=== PATIENT | female | born 1980 | race Caucasian/White ===

== ENCOUNTER 2017-08-17 22:15 | Emergency (ER) | payer BC ==
[2017-08-17] MEDS ORDERED: TYLENOL 325 MG PO STA (22:52)
--- NOTE | 2017-08-17 22:52 | ERPHSYRPT ---
- History of Present Illness Time Seen by Provider: 08/17/17 22:43 Source: patient Exam Limitations: no limitations Physician History: The patient is an obese 36-year-old female who complains of having a fever and a scratchy throat for 7 hours today. She denies nausea vomiting or diarrhea. She denies headache. Her ears are mildly painful. Timing/Duration: today, hour(s) (7) Fever Severity: mild Fever Therapy PAINTER DECORATOR: none Associated Symptoms: sore throat Allergies/Adverse Reactions: No Known Drug Allergies Allergy (Unverified 08/17/17 22:54) - Review of Systems Constitutional: Fever, No Chills Eyes: No Symptoms Ears, Nose, & Throat: Ear Pain, Throat Pain, No Hoarse Respiratory: No Cough, No Dyspnea Cardiac: No Chest Pain, No Edema, No Syncope Abdominal/Gastrointestinal: No Abdominal Pain, No Nausea, No Vomiting, No Diarrhea Genitourinary Symptoms: No Dysuria Musculoskeletal: No Back Pain, No Neck Pain Skin: No Rash Neurological: No Dizziness, No Focal Weakness, No Sensory Changes Psychological: No Symptoms Endocrine: No Symptoms Hematologic/Lymphatic: No Symptoms Immunological/Allergic: No Symptoms All Other Systems: Reviewed and Negative - Nursing Vital Signs Nursing Vital Signs: Initial Vital Signs Temperature 100.1 F 08/17/17 22:29 Pulse Rate 114 H 08/17/17 22:29 Respiratory Rate 18 08/17/17 22:29 Blood Pressure 135/77 08/17/17 22:29 O2 Sat by Pulse Oximetry 95 08/17/17 22:29 Pain Scale Pain Intensity 0 - Physical Exam General Appearance: no apparent distress, alert Eye Exam: PERRL/EOMI ENT Exam: normal ENT inspection, No pharyngeal erythema, No tonsillar exudate Neck Exam: supple, full range of motion, No meningismus Respiratory Exam: normal breath sounds, lungs clear, no respiratory distress Cardiovascular/Chest Exam: normal heart sounds, regular rate/rhythm, No murmur, No edema Gastrointestinal/Abdominal Exam: soft, non tender, no distention Pelvic Exam: not done Rectal Exam: not done Extremity Exam: non-tender, normal range of motion, normal inspection, normal capillary refill Neurologic Exam: alert, oriented x 3, cooperative, chief yeoman II-XII nml as tested, normal mood/affect, sensation nml, No motor deficits Skin Exam: normal color, warm, dry, No rash SpO2 Interpretation: normal Ordered Tests: Active Orders 24 hr Category Date Time Status BMP Stat Lab 08/17/17 23:11 Completed CBC W DIFF Stat Lab 08/17/17 23:11 Completed CULTURE, THROAT Stat Lab 08/17/17 23:08 Received STREP SCREEN-BETA A Stat Lab 08/17/17 23:08 Completed UA W/ MICROSCOPIC Stat Lab 08/17/17 23:00 Completed Medication Summary Discontinued Medications Generic Name Dose Route Start Last Admin Trade Name Zofia PRN Reason Stop Dose Admin Acetaminophen 975 mg 08/17/17 22:52 08/17/17 22:57 Tylenol 325 Mg PO 08/17/17 22:53 975 mg STAT STA Administration Acetaminophen Confirm 08/17/17 22:56 Tylenol 325 Mg Administered 08/17/17 22:57 Dose 975 mg .ROUTE .[facility] Lab/Rad Data: Laboratory Result Diagrams 08/17/17 23:11 08/17/17 23:11 Laboratory Results 08/17/17 08/17/17 08/17/17 Range/Units 23:11 23:11 23:08 WBC 12.2 H (4.0-10.5) K/mm3 RBC 4.36 (4.1-5.4) M/mm3 Hgb 12.5 (12.0-16.0) gm/dl Hct 38.3 (35-47) % MCV 87.8 (78-100) fl MCH 28.7 (26-32) pg MCHC 32.6 (32-36) g/dl RDW 14.1 H (11.5-14.0) % Plt Count 222 (150-450) K/mm3 MPV 10.8 H (6-9.5) fl Gran % 82.1 H (36.0-66.0) % Lymphocytes % 10.4 L (24.0-44.0) % Monocytes % 7.1 (0.0-12.0) % Eosinophils % 0.2 (0.00-5.0) % Basophils % 0.2 (0.0-0.4) % Basophils # 0.02 (0-0.4) Sodium 140 (136-145) mEq/L Potassium 4.5 (3.5-5.1) mEq/L Chloride 102 (98-107) mEq/L Carbon Dioxide 29.2 (21-32) mEq/L Anion Gap 12.9 (5-15) MEQ/L BUN 15 (9-20) mg/dL Creatinine 0.76 (0.55-1.30) mg/dl Estimated GFR > 60 ML/MIN Glucose 111 H (70-110) MG/DL Calcium 9.6 (8.5-10.1) mg/dL Ur Collection Type Urine Color (YELLOW) Urine Appearance (CLEAR) Urine pH (5-6) Ur Specific [place] (1.005-1.025) Urine Protein (Negative) Urine Ketones (NEGATIVE) Urine Blood (0-5) Daniel/ul Urine Nitrite (NEGATIVE) Urine Bilirubin (NEGATIVE) Urine Urobilinogen (0-1) mg/dL Ur Leukocyte Esterase (NEGATIVE) Urine Microscopic RBC (0-2) /HPF Ur Epithelial Cells (FEW) /HPF Urine Culture Reflexed (NO) Urine Glucose (NEGATIVE) mg/dL Influenza Type A Ag NEGATIVE (NEGATIVE) Influenza Type B Ag NEGATIVE (NEGATIVE) RSV (PCR) NEGATIVE (Negative) Streptococcus Screen (Negative) Specimen Received 08/17/17 08/17/17 Range/Units 23:08 23:00 WBC (4.0-10.5) K/mm3 RBC (4.1-5.4) M/mm3 Hgb (12.0-16.0) gm/dl Hct (35-47) % MCV (78-100) fl MCH (26-32) pg MCHC (32-36) g/dl RDW (11.5-14.0) % Plt Count (150-450) K/mm3 MPV (6-9.5) fl Gran % (36.0-66.0) % Lymphocytes % (24.0-44.0) % Monocytes % (0.0-12.0) % Eosinophils % (0.00-5.0) % Basophils % (0.0-0.4) % Basophils # (0-0.4) Sodium (136-145) mEq/L Potassium (3.5-5.1) mEq/L Chloride (98-107) mEq/L Carbon Dioxide (21-32) mEq/L Anion Gap (5-15) MEQ/L BUN (9-20) mg/dL Creatinine (0.55-1.30) mg/dl Estimated GFR ML/MIN Glucose (70-110) MG/DL Calcium (8.5-10.1) mg/dL Ur Collection Type CLEAN CATCH Urine Color YELLOW (YELLOW) Urine Appearance CLEAR (CLEAR) Urine pH 5.0 (5-6) Ur Specific [place] 1.010 (1.005-1.025) Urine Protein NEGATIVE (Negative) Urine Ketones NEGATIVE (NEGATIVE) Urine Blood 250 (0-5) Daniel/ul Urine Nitrite NEGATIVE (NEGATIVE) Urine Bilirubin NEGATIVE (NEGATIVE) Urine Urobilinogen NORMAL (0-1) mg/dL Ur Leukocyte Esterase NEGATIVE (NEGATIVE) Urine Microscopic RBC 2-5 (0-2) /HPF Ur Epithelial Cells FEW (FEW) /HPF Urine Culture Reflexed NO (NO) Urine Glucose NEGATIVE (NEGATIVE) mg/dL Influenza Type A Ag (NEGATIVE) Influenza Type B Ag (NEGATIVE) RSV (PCR) (Negative) Streptococcus Screen NEGATIVE (Negative) Specimen Received 08/17/17:2300 - Progress Progress: improved - Departure Time of Disposition: 01:23 Departure Disposition: Home Clinical Impression: Fever Condition: Stable Critical Care Time: No Referrals: KARIN KINSEY [Primary Care Provider] - Additional Instructions: Take tylenol and ibuprofen as needed.
[2017-08-17] MEDS ORDERED: TYLENOL 325 MG ONE (22:56)
[2017-08-17 23:15] LABS: BASOPHIL % 0.2 % (0.0-0.4); Eosinophil % 0.2 % (0.00-5.0); Granulocytes % 82.1 % (36.0-66.0); Lymphocytes % 10.4 % (24.0-44.0); Mean Cell Volume 87.8 fl (78-100); Mean Corpuscular Hemoglobin 28.7 pg (26-32); Mean Platelet Volume 10.8 fl (6-9.5); Monocytes % 7.1 % (0.0-12.0); Platelet Count 222 K/mm3 (150-450); Red Blood Count 4.36 M/mm3 (4.1-5.4); Red Cell Distribution Width 14.1 % (11.5-14.0); White Blood Count 12.2 K/mm3 (4.0-10.5)
[2017-08-17 23:26] LABS: ADD URINE CULTURE? NO (NO); Bilirubin NEGATIVE (NEGATIVE); Blood 250 Ery/ul (0-5); Collection Type CLEAN CATCH; Glucose NEGATIVE (NEGATIVE); Leukocyte Esterase NEGATIVE (NEGATIVE)
[2017-08-17 23:27] LABS: COMPLETE URINE MICROSCOPIC? YES; Epithelial Cells FEW /HPF (FEW)
[2017-08-17 23:31] LABS: ANION GAP 12.9 MEQ/L (5-15); BLOOD UREA NITROGEN 15 mg/dL (9-20); CHLORIDE 102 mEq/L (98-107); Carbon Dioxide 29.2 mEq/L (21-32); Glucose 111 MG/DL (70-110); Potassium 4.5 mEq/L (3.5-5.1); SODIUM 140 mEq/L (136-145)
[2017-08-18 00:49] VITALS: O2SAT 99
[2017-08-18 01:31] VITALS: BP 114/50; PULSE 100
== END 2017-08-18 01:30 | disposition home or self-care (01) ==
LOC: ED 22:15
DX: R50.9 Fever, unspecified (principal)
CPT/HCPCS: 36415; 80048; 81000; 85025; 87070; 87430; 87631; 99284; A9270-GY